=== PATIENT | female | born 1985 | race African-American/Black ===

== ENCOUNTER 2017-11-22 12:45 | Emergency (ER) | payer MEDICAID ==
[~2017-11-22] VITALS: Ht 167.6 cm; Wt 59.0 kg
[2017-11-22 12:55] VITALS: BP 110/75
[2017-11-22] MEDS ORDERED: BACITRACIN-P28.35 GM TP (13:14)
[2017-11-22] MEDS ORDERED: TYLENOL EXTRA500 MG ORAL (13:14)
--- NOTE | 2017-11-22 13:14 | Emergency Room Report ---
History of Present Illness General Chief Complaint: Skin Rash/Abscess Source: Patient Present Illness HPI 32-year-old female patient presents ER complaining of burning pain at her hairline for the past 2 days. Reports that she went to her hairdresser who put a perm relaxer into her hair. Reports that she began dextrans burning pain and noticed some scabbing present at her hairline. Denies fever, chest pain, shortness breath, vomiting, other acute symptoms. Denies bleeding. Reports has not washed her hair since that time. denies chemical getting in, denies eye irritation or pain. Allergies: Coded Allergies: No Known Allergies (Unverified , 11/22/17) Patient History Past Medical History: see triage record Last Menstrual Period: 11/15/17 Now: No : 3 Para: 2 Reviewed Nursing Documentation: PMH: Agreed; PSxH: Agreed Nursing Documentation-PMH Past Medical History: No History, Except For Hx Asthma: Yes Review of Systems All Other Systems: negative except mentioned in HPI Physical Exam Vital Signs Date Time Temp Pulse Resp B/P (MAP) Pulse Ox O2 Delivery O2 Flow Rate FiO2 11/22/17 12:47 98.2 78 18 110/75 96 Room Air 98.2 Sp02 EP Interpretation: reviewed, normal General Appearance: well appearing, no apparent distress, alert, GCS 15, non- toxic Head: normocephalic, atraumatic Eyes: bilateral eye normal inspection, bilateral eye PERRL ENT: hearing grossly normal, normal pharynx, no angioedema, normal voice, uvula midline, moist mucus membranes Neck: full range of motion Respiratory: lungs clear, normal breath sounds, no rhonchi, no respiratory distress, no accessory muscle use, no wheezing, speaking full sentences Cardiovascular #1: regular rate, rhythm, no edema Musculoskeletal: normal inspection Neurologic: alert, oriented x3, responsive, motor strength/tone normal, sensory intact Skin: other - hairline: Multiple 1-2 mm scabs present long hairline on forehead , no surrounding erythema or edema, no bleeding or open lesions, no blisters Medical Decision Making PA Attestation Dr. Dickinson is my supervising Physician whom patient management has been discussed with. Diagnostic Impression: Primary Impression: Contact dermatitis ER Course Pt presents to ED c/o burning pain at the hairline after having perm relaxer put in hair. DDX considered but are not limited to burn injury, cellulitis, blister. VITAL SIGNS are WNL, patient is afebrile ORDERS: none required at this time, diagnosis is clinical ED INTERVENTIONS: Patient wound irrigated with copious amounts of normal saline in the ER. Reports pain improved following irrigation. Applied bacitracin to affected area in the ER. May apply vasoline to affected area. Patient instructed to followup with primary care provider in a few days for further treatment and to discuss referral to patient financial services specialist and/or derm. Advised patient not to use perm relaxer again. Patient understands and agrees to treatment plan. DISCHARGE: Rx provided for bacitracin Rx provided for Ibuprofen for pain At this time pt is stable for d/c to home. Patient resting comfortably, in no acute distress, talking normally, smiling. Will provide with patient care instructions and any necessary prescriptions. Patient to take medication as instructed. Care plan and follow-up instructions provided. Patient questions asked and answered. Patient instructed to follow-up with primary care provider in 3 -5 days. ER precautions given. Patient instructed to return to ER immediately for any new or worsening of symptoms. - Please note that this Emergency Department Report was dictated using [employer] aide technology software, occasionally this can lead to erroneous entry secondary to interpretation by the dictation equipment. Last Vital Signs Date Time Temp Pulse Resp B/P (MAP) Pulse Ox O2 Delivery O2 Flow Rate FiO2 11/22/17 12:55 98.2 78 18 110/75 96 Room Air 98.2 Disposition: HOME, SELF-CARE Condition: Stable Scripts Bacitracin/Polymyxin B Sulfate (BACITRACIN-POLYMYXIN OINTMENT) 28.35 Gm Oint...g. 1 APPLIC TP BID, #28 GM Prov: Lg García 11/22/17 Acetaminophen* (TYLENOL EXTRA STRENGTH*) 500 Mg Tablet 500 MG ORAL Q8H PRN for Prn Headache/Temp > 101, #30 TAB 0 Refills Prov: Lg García 11/22/17 Patient Instructions: Chemical Burn, Contact Dermatitis, [id number] Additional Instructions: Followup with primary care provider in 3 -5 days. Request referral to dermatology. Do not scratch or itch. Apply cool compresses to affected area. Wash hair, avoid exposure to eyes. Take medications as directed. Patient questions asked and answered. ER precautions given, patient instructed to return to ER immediately for any new or worsening of symptoms. [facility] [place] [facility] Lg García Nov 22, 2017 13:14
[2017-11-22] MEDS ORDERED: Bacitracin Oint UD TOPIC ONE ×2 (13:15→13:30)
[2017-11-22 13:26] VITALS: BP 110/75
== END 2017-11-22 13:28 | disposition home or self-care (01) ==
LOC: EMR 13:11
DX: L24.5 Irritant contact dermatitis due to other chemical products (principal); Y92.89 Other specified places as the place of occurrence of the external cause; J45.909 Unspecified asthma, uncomplicated
CPT/HCPCS: 99283